=== PATIENT | male | born 1990 | race African-American/Black ===

== ENCOUNTER 2024-06-15 00:26 | Inpatient (IN) | payer OTHER, SELFPAY ==
[2024-06-15] MEDS ORDERED: fentaNYL 50 mcg/mL 1 mL Vial ONE (00:51)
[2024-06-15 01:05] LABS: #Basophils 0.06 10x3/uL (0.0-0.2); %Basophils 0.6 % (0.0-1.0); %Eosinophils 1.6 % (0.0-10.0); %Lymphocytes 32.9 % (21.0-51.0); %Monocytes 5.5 % (0.0-10.0); %Neutrophils 58.8 % (42.0-75.0); Hemoglobin 14.8 g/dL (14.0-18.0); Mean Corpuscular HGB CONC 34.4 g/dL (32.0-36.0); Mean Corpuscular Hemoglobin 30.6 pg (27.0-31.0); Mean Corpuscular Volume 88.8 fL (78.0-98.0); Mean Platelet Volume 9.6 fL (7.4-10.4); Platelet Count 280 10x3/uL (130-400); RBC Distribution Width 12.3 % (11.5-14.5); Red Blood Cell (RBC) Count 4.84 mill/uL (4.70-6.10)
[2024-06-15 01:25] LABS: ALT (SGPT) 17 U/L (8-55); AST (SGOT) 23 U/L (5-34); Albumin 4.4 g/dL (3.5-5.0); Alkaline Phosphatase 54 U/L (40-110); Anion Gap 22 mmol/L (10-20); BUN (Urea Nitrogen) 15 mg/dL (8.9-20.6); Bilirubin, Total 0.4 mg/dL (0.2-1.2); Calc. Creatinine Clearance 0 mL/min (70-130); Calcium 8.7 mg/dL (7.8-10.44); Carbon Dioxide 14 mmol/L (22-29); Chloride 105 mmol/L (98-107); Estimated GFR 84; Globulin 3.2 g/dL (2.4-3.5); Glucose 197 mg/dL (70-105); Lipase 61 U/L (8-78); Magnesium 2.1 mg/dL (1.6-2.6); Potassium 3.2 mmol/L (3.5-5.1); Protein, Total 7.6 g/dL (6.0-8.3); Sodium 138 mmol/L (136-145)
[2024-06-15] MEDS ORDERED: Morphine 4 MG/ML VIAL ONE ×2 (01:29→02:45)
[2024-06-15 02:29] LABS: Acetaminophen Less than 10 mcg/mL (Less than 10); Alcohol 188.8 mg/dL (Less than 10); Salicylate Less than 8.0 mg/dL (Less than 8.0)
[2024-06-15] MEDS ORDERED: Ondansetron PF 4 MG/2 ML Vial ONE (02:45)
[2024-06-15] MEDS ORDERED: cefTRIAXone (ROCEPHIN) 2 GM VIAL ONE (03:28)
[2024-06-15] MEDS ORDERED: Sodium Chloride 0.9% 100 ML ONE ×3 (03:28→16:16)
[2024-06-15] MEDS ORDERED: metroNIDAZOLE 500 MG (100 mL) BAG ONE (03:28)
[2024-06-15] MEDS ORDERED: HYDROmorphone 0.5 MG/0.5 ML SYRINGE ONE ×4 (03:29→09:26)
[2024-06-15] MEDS ORDERED: Ketorolac Tromethamine 30 MG (1 mL) VIAL ONE ×3 (04:24→12:03)
[2024-06-15] MEDS ORDERED: Promethazine HCl 25 MG/ML VIAL ONE (04:24)
[2024-06-15 04:29] LABS: Actual Bicarbonate (HCO3v) 19.1 mEq/L (22-28); Analyzer IN Cardio ER; Base Excess -10.6 mEq/L (-2.0 to +3.0); Calcium, Ionized (venous) 0.99 mmol/L (1.16-1.32); Chloride (VBG) 108 mmol/L (98-106); Hematocrit-VBG 48 % (42.0-52.0); Hemoglobin (Hb) 16.3 g/dL (13.2-17.3); Potassium (VBG) 3.22 mmol/L (3.70-5.30); Sodium 145 mmol/L (133-146)
[2024-06-15 04:46] LABS: Analyzer IN Cardio ER; Base Excess (BEa) -14.5 mEq/L (-2.0 to +3.0); CO2 Tension 41.3 mmHg (35.0-45.0); Calcium, Ionized (arterial) 1.09 mmol/L (1.12-1.30); Carboxyhemoglobin (COHb) 4.3 gm% (0.0-3.0); Hematocrit-ABG 48 % (42.0-52.0); Hemoglobin (Hb) 16.4 g/dL (14.0-18.0); O2 Tension (PaO2), arterial 111.5 mmHg (80.0-100.0); Potassium - ABG Lab 3.28 mmol/L (3.70-5.30)
[2024-06-15 04:54] LABS: Bacteria/HPF None Seen HPF (None Seen); Bilirubin Negative (Negative); Blood, Urine Negative (Negative); CAUTI Indications for Culture Urological Procedure; Clarity Clear (Clear); Glucose, Urine (Dipstick) Normal (Negative); Ketone, Urine Negative (Negative); Leukocyte Negative Leu/uL (Negative); Nitrite Negative (Negative); Protein, Urine (Dipstick) Negative (Neg-Trace); RBC/HPF 0-3 HPF (0-3); Specific Gravity, Urine 1.007 (1.002-1.036); Squamous Epithelial None Seen HPF (0-3); Urobilinogen Normal mg/dL (Less than 2); WBC/HPF 0-3 HPF (0-3)
[2024-06-15 04:59] LABS: pH (venous) 7.141 (7.32-7.43)
[2024-06-15 04:59] LABS: pH, Arterial 7.146 (7.35-7.45)
[2024-06-15 05:00] LABS: ALV-art Gradient 122.075 mmHg (0-20); Actual Bicarbonate (HCO3a) 13.9 mEq/L (22-28); Puncture Site Right Radial artery
[2024-06-15 05:01] LABS: Urine Culture Reflex No No; Urine Culture Reflex Yes Yes
[2024-06-15 05:03] LABS: Amphetamine Not Detected (NotDetected); Barbiturates Screen Not Detected (NotDetected); Benzodiazepine Screen Not Detected (NotDetected); Cocaine Metabolite Screen Not Detected (NotDetected); Methadone Not Detected (NotDetected); Methamphetamine Not Detected (NotDetected); Opiate Screen Detected (NotDetected); Oxycodone Screen Not Detected (NotDetected); Phencyclidine (PCP) Not Detected (NotDetected); THC/Cannabinoid Screen Not Detected (NotDetected); Tricyclic Screen Not Detected (NotDetected)
[2024-06-15] MEDS ORDERED: NS 0.9% w/ 20 MEQ KCL 1,000 ML ONE (05:20)
[2024-06-15] MEDS ORDERED: PROPOFOL 20 ML ONE (05:41)
[2024-06-15 05:43] LABS: Lactic Acid 6.39 mmol/L (0.5-2.2)
[2024-06-15] MEDS ORDERED: fentaNYL PF 100 MCG/2 ML SYRINGE ONE (05:44)
[2024-06-15] MEDS ORDERED: Dexamethasone 20 MG/5 ML VIAL ONE (05:53)
[2024-06-15] MEDS ORDERED: PHENYLEPHRINE-NS 100 MCG/ML 10 ML SYRINGE ONE (05:53)
[2024-06-15] MEDS ORDERED: Midazolam HCl 2 mg/2 ml Vial ONE (05:57)
[2024-06-15] MEDS ORDERED: Vasopressin 20 UNITS/ML VIAL ONE (06:01)
[2024-06-15] MEDS ORDERED: Rocuronium Bromide 10 MG/ML (10ML VIAL) ONE (06:31)
[2024-06-15] MEDS ORDERED: Lidocaine 1% PF 5 ML VIAL ONE (06:31)
[2024-06-15] MEDS ORDERED: Ketamine In 0.9 % NaCl 50 MG/5 ML SYRINGE ONE (06:55)
[2024-06-15] MEDS ORDERED: Ondansetron PF 4 MG/2 ML Vial IVP PRN (07:23)
[2024-06-15] MEDS ORDERED: Morphine 2 MG/ML VIAL SLOW IVP PRN (07:23)
[2024-06-15] MEDS ORDERED: SUGAMMADEX SODIUM 200 MG/2 ML VIAL ONE (07:28)
[2024-06-15] MEDS ORDERED: Ipratropium/Albuterol 3 ML NEB ONE (08:02)
[2024-06-15] MEDS ORDERED: Communication Order-Pharmacy FS SCH (09:00)
[2024-06-15] MEDS ORDERED: diphenhydrAMINE 50 MG/ML VIAL IVP PRN (09:00)
[2024-06-15] MEDS ORDERED: HYDROmorphone/PF 10 MG in Sodium Chloride 0.9% 99 ML IV PRN (09:00)
[2024-06-15] MEDS ORDERED: Naloxone HCl 0.4 mg/ml Vial IV PRN (09:00)
[2024-06-15] MEDS ORDERED: diphenhydrAMINE 50 MG/ML VIAL IM PRN (09:00)
[2024-06-15] MEDS ORDERED: diphenhydrAMINE 25 MG CAP PO PRN (09:00)
[2024-06-15] MEDS ORDERED: Promethazine HCl 25 MG/ML VIAL IM PRN (09:00)
[2024-06-15] MEDS ORDERED: Iopamidol-370 76% 500 ML MDV (1 ML CHARGE) ONE ×2 (10:28→11:07)
[2024-06-15] MEDS: Sodium Bicarbonate 150 MEQ in Dextrose 5% in Water 1,000 ML IV SCH (11:38)
[2024-06-15] MEDS: Ketorolac Tromethamine 30 MG (1 mL) VIAL IVP SCH ×3 (11:39→18:47)
[2024-06-15] MEDS ORDERED: Piperacillin/Tazobactam 3.375 GM in Sodium Chloride 0.9% 100 ML IVPB SCH (12:00)
[2024-06-15] MEDS ORDERED: Piperacillin/Tazobactam 3.375 GM VIAL ONE ×2 (12:05→16:16)
[2024-06-15] MEDS ORDERED: Famotidine/PF 20 mg/2ml Vial ONE (12:08)
[2024-06-15] MEDS: Famotidine/PF 20 mg/2ml Vial SLOW IVP SCH (12:14)
[2024-06-15] MEDS: Piperacillin/Tazobactam 3.375 GM in Sodium Chloride 0.9% 100 ML IVPB SCH ×3 (12:14→17:53)
[2024-06-15 12:54] LABS: Hematocrit 46.1 % (42.0-52.0); Hemoglobin 15.3 g/dL (14.0-18.0); Mean Corpuscular HGB CONC 33.2 g/dL (32.0-36.0); Mean Corpuscular Hemoglobin 30.1 pg (27.0-31.0); Mean Corpuscular Volume 90.7 fL (78.0-98.0); Mean Platelet Volume 10.4 fL (7.4-10.4); Platelet Count 222 10x3/uL (130-400); RBC Distribution Width 12.6 % (11.5-14.5); Red Blood Cell (RBC) Count 5.08 mill/uL (4.70-6.10)
[2024-06-15 13:10] LABS: Lactic Acid 2.74 mmol/L (0.5-2.2)
[2024-06-15 13:20] LABS: Band 53 % (5-11); Large Platelets 8.1 % (0-5); Lymphocytes 5 % (21-51); Macrocytosis SLIGHT = 6-15 cells HPF (0-5); Monocytes 14 % (0-10); Neutrophil 20 % (42-75); Platelet Adequacy Comment Platelets Normal; Polychromasia SLIGHT = 2-3 cells HPF (0-2); Reactive Lymphocytes 8 % (0-10); Reflex for Review?? YES
[2024-06-15 13:22] LABS: Anion Gap 11 mmol/L (10-20); BUN (Urea Nitrogen) 11 mg/dL (8.9-20.6); Calc. Creatinine Clearance 0 mL/min (70-130); Carbon Dioxide 18 mmol/L (22-29); Chloride 116 mmol/L (98-107); Estimated GFR 108; Glucose 121 mg/dL (70-105); Potassium 4.4 mmol/L (3.5-5.1); Sodium 141 mmol/L (136-145)
[2024-06-15] MEDS: Lactated Ringer's 1,000 ML IV SCH (18:48)
[2024-06-15 21:59] LABS: Troponin I Less than 0.010 ng/mL (< 0.028)
[2024-06-15] MEDS: Sodium Chloride 0.9% 500 ML IV SCH (23:20)
[2024-06-15 23:42] LABS: ALT (SGPT) 16 U/L (8-55); AST (SGOT) 33 U/L (5-34); Alkaline Phosphatase 33 U/L (40-110); Anion Gap 21 mmol/L (10-20); BUN (Urea Nitrogen) 13 mg/dL (8.9-20.6); Bilirubin, Total 1.4 mg/dL (0.2-1.2); Calc. Creatinine Clearance 99 mL/min (70-130); Calcium 7.1 mg/dL (7.8-10.44); Carbon Dioxide 14 mmol/L (22-29); Chloride 113 mmol/L (98-107); Estimated GFR 81; Globulin 2.7 g/dL (2.4-3.5); Glucose 103 mg/dL (70-105); Potassium 4.8 mmol/L (3.5-5.1); Protein, Total 5.7 g/dL (6.0-8.3); Sodium 143 mmol/L (136-145)
[2024-06-15 23:54] LABS: Amphetamine Not Detected (NotDetected); Barbiturates Screen Not Detected (NotDetected); Benzodiazepine Screen Not Detected (NotDetected); Cocaine Metabolite Screen Not Detected (NotDetected); Methadone Not Detected (NotDetected); Methamphetamine Not Detected (NotDetected); Opiate Screen Detected (NotDetected); Oxycodone Screen Not Detected (NotDetected); Phencyclidine (PCP) Not Detected (NotDetected); THC/Cannabinoid Screen Not Detected (NotDetected); Tricyclic Screen Not Detected (NotDetected)
[2024-06-16 00:12] LABS: Hematocrit 48.9 % (42.0-52.0); Hemoglobin 16.4 g/dL (14.0-18.0); Mean Corpuscular HGB CONC 33.5 g/dL (32.0-36.0); Mean Corpuscular Hemoglobin 30.5 pg (27.0-31.0); Mean Corpuscular Volume 91.1 fL (78.0-98.0); Platelet Count 165 10x3/uL (130-400); Red Blood Cell (RBC) Count 5.37 mill/uL (4.70-6.10)
[2024-06-16] MEDS ORDERED: Lorazepam 2 MG/ML VIAL IM PRN (00:32)
[2024-06-16] MEDS ORDERED: Electrolyte Replacement Protocol 1 EACH FS SCH (00:45)
[2024-06-16 00:57] LABS: Anisocytosis SLIGHT = 6-15 cells HPF (0-5); Band 55 % (5-11); Large Platelets 5.4 % (0-5); Lymphocytes 2 % (21-51); Macrocytosis SLIGHT = 6-15 cells HPF (0-5); Metamyelocyte 17 % (0-0); Monocytes 1 % (0-10); Myelocyte 7 % (0-0); Neutrophil 19 % (42-75); Platelet Adequacy Comment Platelets Normal; Polychromasia SLIGHT = 2-3 cells HPF (0-2); Smudge Cells 3.6 %
[2024-06-16] MEDS: Sodium Chloride 0.9% 500 ML IV SCH (01:23)
[2024-06-16] MEDS: Lorazepam 1 MG TAB PO SCH (01:44)
[2024-06-16] MEDS: Thiamine HCl 200 MG/2 ML VIAL SLOW IVP SCH (01:44)
[2024-06-16 02:38] LABS: Hematocrit 44.6 % (42.0-52.0); Hemoglobin 14.4 g/dL (14.0-18.0); Mean Corpuscular HGB CONC 32.3 g/dL (32.0-36.0); Mean Corpuscular Hemoglobin 30.3 pg (27.0-31.0); Mean Corpuscular Volume 93.9 fL (78.0-98.0); Mean Platelet Volume 10.7 fL (7.4-10.4); Platelet Count 211 10x3/uL (130-400); RBC Distribution Width 12.9 % (11.5-14.5); Red Blood Cell (RBC) Count 4.75 mill/uL (4.70-6.10)
[2024-06-16 02:46] LABS: ALT (SGPT) 16 U/L (8-55); AST (SGOT) 33 U/L (5-34); Albumin 2.7 g/dL (3.5-5.0); Alkaline Phosphatase 32 U/L (40-110); Anion Gap 16 mmol/L (10-20); BUN (Urea Nitrogen) 13 mg/dL (8.9-20.6); Bilirubin, Direct 0.5 mg/dL (0.1-0.3); Bilirubin, Total 1.1 mg/dL (0.2-1.2); Calc. Creatinine Clearance 106 mL/min (70-130); Calcium 6.7 mg/dL (7.8-10.44); Carbon Dioxide 18 mmol/L (22-29); Chloride 112 mmol/L (98-107); Estimated GFR 88; Globulin 2.5 g/dL (2.4-3.5); Glucose 101 mg/dL (70-105); Magnesium 1.4 mg/dL (1.6-2.6); Phosphorus 2.9 mg/dL (2.3-4.7); Potassium 5.2 mmol/L (3.5-5.1); Protein, Total 5.2 g/dL (6.0-8.3); Sodium 141 mmol/L (136-145)
[2024-06-16] MEDS: Sodium Chloride 0.9% 1,000 ML IV SCH ×3 (03:18→15:41)
[2024-06-16 03:19] LABS: Actual Bicarbonate (HCO3a) 20.8 mEq/L (22-28); Base Excess (BEa) -5.4 mEq/L (-2.0 to +3.0); CO2 Tension 42.8 mmHg (35.0-45.0); Calcium, Ionized (arterial) 0.99 mmol/L (1.12-1.30); Carboxyhemoglobin (COHb) 1.9 gm% (0.0-3.0); Hematocrit-ABG 44 % (42.0-52.0); Hemoglobin (Hb) 14.8 g/dL (14.0-18.0); Potassium - ABG Lab 4.45 mmol/L (3.70-5.30); pH, Arterial 7.304 (7.35-7.45)
[2024-06-16] MEDS: Magnesium 2 GM/50 ML(in water) 2 GM in Premix 1 BAG IVPB SCH ×2 (03:19→06:33)
[2024-06-16 03:20] LABS: O2 Tension (PaO2), arterial 50.5 mmHg (80.0-100.0)
[2024-06-16 03:21] LABS: Puncture Site Right Brachial art
[2024-06-16] MEDS: Lorazepam 1 MG TAB PO PRN (03:36)
[2024-06-16 04:02] LABS: Anisocytosis SLIGHT = 6-15 cells HPF (0-5); Band 49 % (5-11); Lymphocytes 8 % (21-51); Macrocytosis SLIGHT = 6-15 cells HPF (0-5); Metamyelocyte 6 % (0-0); Monocytes 1 % (0-10); Myelocyte 12 % (0-0); Neutrophil 23 % (42-75); Platelet Adequacy Comment Platelets Normal; Polychromasia SLIGHT = 2-3 cells HPF (0-2); Reactive Lymphocytes 2 % (0-10); Smudge Cells 6.7 %
[2024-06-16 04:07] LABS: Platelet Count 193 10x3/uL (130-400)
[2024-06-16 04:40] LABS: Fibrinogen 554 mg/dL (253-463)
[2024-06-16 04:42] LABS: PTT 39.2 sec (22.9-36.1); Prothrombin Time 22.7 sec (12.0-14.7)
[2024-06-16 04:49] LABS: D-Dimer Test 4.67 mcg/mL (0.27-0.43)
[2024-06-16 04:54] LABS: Lactic Acid 4.47 mmol/L (0.5-2.2)
[2024-06-16 05:06] LABS: Actual Bicarbonate (HCO3a) 24.4 mEq/L (22-28); Base Excess (BEa) -3.6 mEq/L (-2.0 to +3.0); CO2 Tension 55.8 mmHg (35.0-45.0); Carboxyhemoglobin (COHb) 1.5 gm% (0.0-3.0); Hematocrit-ABG 43 % (42.0-52.0); Hemoglobin (Hb) 14.6 g/dL (14.0-18.0); Potassium - ABG Lab 4.25 mmol/L (3.70-5.30); pH, Arterial 7.258 (7.35-7.45)
[2024-06-16] MEDS: Methocarbamol 1 GM in Sodium Chloride 0.9% 100 ML IVPB PRN (05:07)
[2024-06-16 05:09] LABS: O2 Tension (PaO2), arterial 53.2 mmHg (80.0-100.0); Puncture Site Right Brachial art
[2024-06-16 05:26] LABS: Lactic Acid 3.98 mmol/L (0.5-2.2)
[2024-06-16] MEDS: Ipratropium/Albuterol 3 ML NEB NEB SCH ×2 (06:27→22:17)
[2024-06-16] MEDS ORDERED: Morphine 2 MG/ML VIAL SLOW IVP PRN ×2 (07:45→21:15)
[2024-06-16] MEDS: Folic Acid 1 MG TAB PO SCH (08:22)
[2024-06-16] MEDS: Enoxaparin 40 MG (0.4 mL) SYRINGE SC SCH (08:22)
[2024-06-16] MEDS: Multivit, Therapeutic 1 TAB PO SCH (08:22)
[2024-06-16] MEDS: Dexmedetomidine In 0.9 % NaCl 100 ML IV SCH (10:28)
[2024-06-16] MEDS ORDERED: Iopamidol-370 76% 500 ML MDV (1 ML CHARGE) ONE (10:33)
[2024-06-16] MEDS: CALCIUM GLUC 1 GM/NS 50 ML 1 GM in Premix 1 BAG IVPB SCH (12:00)
[2024-06-16] MEDS: Lactated Ringer's 1,000 ML IV SCH ×2 (12:01→15:27)
[2024-06-16] MEDS: Albumin 25% 25 GM (100 mL) BOT IVPB SCH (12:01)
[2024-06-16] MEDS: Morphine 2 MG/ML VIAL SLOW IVP PRN (15:08)
[2024-06-16 15:20] LABS: Actual Bicarbonate (HCO3a) 22.1 mEq/L (22-28); Base Excess (BEa) -2.8 mEq/L (-2.0 to +3.0); CO2 Tension 38.6 mmHg (35.0-45.0); Calcium, Ionized (arterial) 1.09 mmol/L (1.12-1.30); Carboxyhemoglobin (COHb) 0.3 gm% (0.0-3.0); Hematocrit-ABG 35 % (42.0-52.0); Potassium - ABG Lab 3.96 mmol/L (3.70-5.30); pH, Arterial 7.375 (7.35-7.45)
[2024-06-16] MEDS ORDERED: Morphine 4 MG/ML VIAL SLOW IVP PRN (15:23)
[2024-06-16] MEDS: NOREPINEPHRINE 8 MG/250 ML-D5W 250 ML IVPB SCH (15:50)
[2024-06-16 16:34] LABS: O2 Tension (PaO2), arterial 54.4 mmHg (80.0-100.0); Puncture Site Right Radial artery
[2024-06-16] MEDS: Etomidate 40 MG (20 mL) VIAL IVP SCH (20:48)
[2024-06-16] MEDS: Propofol 1,000 MG/100 ML VIAL IV SCH (20:48)
[2024-06-16] MEDS: Rocuronium Bromide 10 MG/ML (10ML VIAL) IVP SCH ×2 (20:50→21:16)
[2024-06-16] MEDS ORDERED: Ventilator Sedation Protocol 1 EACH FS SCH (20:57)
[2024-06-16] MEDS: Fentanyl CADD 100 ML IV SCH (21:14)
[2024-06-16] MEDS: Fentanyl CADD 100 ML ONE (21:15)
[2024-06-16] MEDS: Escitalopram Oxalate 20 mg Tablet PO SCH (21:15)
[2024-06-16] MEDS ORDERED: Fentanyl BOLUS 250 ML IVPB PRN (21:15)
[2024-06-16] MEDS ORDERED: Propofol BOLUS 1,000 MG/100 ML VIAL IV PRN (21:15)
[2024-06-16] MEDS ORDERED: DISCONTINUE PREVIOUS NARCOTIC PAIN MEDICATIONS AND BENZODIAZEPINES FS SCH (21:15)
[2024-06-16] MEDS: methylPREDNISolone Sod Succ 40 MG VIAL IVP SCH (21:30)
[2024-06-16 21:32] LABS: Actual Bicarbonate (HCO3a) 21.9 mEq/L (22-28); Base Excess (BEa) -2.3 mEq/L (-2.0 to +3.0); CO2 Tension 35.5 mmHg (35.0-45.0); Calcium, Ionized (arterial) 1.09 mmol/L (1.12-1.30); Carboxyhemoglobin (COHb) 0.4 gm% (0.0-3.0); Hematocrit-ABG 35 % (42.0-52.0); Hemoglobin (Hb) 11.8 g/dL (14.0-18.0); O2 Tension (PaO2), arterial 67.1 mmHg (80.0-100.0); Potassium - ABG Lab 3.78 mmol/L (3.70-5.30); pH, Arterial 7.408 (7.35-7.45)
[2024-06-16] MEDS: methylPREDNISolone Sod Succ/PF 40 MG in Sodium Chloride 0.9% 250 ML 250 ML IVPB SCH (21:41)
[2024-06-16 21:47] LABS: ALV-art Gradient 601.525 mmHg (0-20); Puncture Site Left Radial artery
[2024-06-16] MEDS: Lorazepam 2 MG/ML VIAL SLOW IVP PRN (22:41)
[2024-06-17] MEDS ORDERED: Lorazepam 1 MG TAB PO PRN (00:32)
[2024-06-17 07:24] LABS: Actual Bicarbonate (HCO3a) 22.8 mEq/L (22-28); Base Excess (BEa) -1.6 mEq/L (-2.0 to +3.0); CO2 Tension 37.5 mmHg (35.0-45.0); Calcium, Ionized (arterial) 1.07 mmol/L (1.12-1.30); Carboxyhemoglobin (COHb) 0.5 gm% (0.0-3.0); Hematocrit-ABG 33 % (42.0-52.0); Hemoglobin (Hb) 11.3 g/dL (14.0-18.0); O2 Tension (PaO2), arterial 79.1 mmHg (80.0-100.0); Potassium - ABG Lab 4.59 mmol/L (3.70-5.30); pH, Arterial 7.402 (7.35-7.45)
[2024-06-17 07:31] LABS: ALV-art Gradient 587.025 mmHg (0-20); Puncture Site Left Radial artery
[2024-06-17 07:40] LABS: Hematocrit 31.8 % (42.0-52.0); Hemoglobin 10.7 g/dL (14.0-18.0); Mean Corpuscular HGB CONC 33.6 g/dL (32.0-36.0); Mean Corpuscular Hemoglobin 29.9 pg (27.0-31.0); Mean Corpuscular Volume 88.8 fL (78.0-98.0); Mean Platelet Volume 11.1 fL (7.4-10.4); Platelet Count 176 10x3/uL (130-400); RBC Distribution Width 13.2 % (11.5-14.5); Red Blood Cell (RBC) Count 3.58 mill/uL (4.70-6.10)
[2024-06-17 07:43] LABS: Anion Gap 13 mmol/L (10-20); BUN (Urea Nitrogen) 14 mg/dL (8.9-20.6); Calc. Creatinine Clearance 107 mL/min (70-130); Carbon Dioxide 22 mmol/L (22-29); Chloride 112 mmol/L (98-107); Estimated GFR 81; Glucose 168 mg/dL (70-105); Magnesium 2.6 mg/dL (1.6-2.6); Potassium 4.6 mmol/L (3.5-5.1); Sodium 142 mmol/L (136-145)
[2024-06-17 08:15] LABS: Band 37 % (5-11); Large Platelets 3.7 % (0-5); Metamyelocyte 2 % (0-0); Monocytes 5 % (0-10); Neutrophil 57 % (42-75); Platelet Adequacy Comment Platelets Normal; RBC Morphology Within Normal Limits
[2024-06-17] MEDS: Lactated Ringer's 1,000 ML IV SCH (08:30)
[2024-06-17] MEDS: methylPREDNISolone Sod Succ 40 MG VIAL IVP SCH (08:34)
[2024-06-17] MEDS: Vecuronium 10 MG VIAL IVP PRN (09:58)
[2024-06-18] MEDS ORDERED: Lorazepam 1 MG TAB PO PRN (00:32)
[2024-06-18] MEDS ORDERED: Lorazepam 0.5 MG TAB PO SCH (00:45)
[2024-06-18 07:39] LABS: Actual Bicarbonate (HCO3a) 21.9 mEq/L (22-28); Base Excess (BEa) -1.9 mEq/L (-2.0 to +3.0); CO2 Tension 34.2 mmHg (35.0-45.0); Calcium, Ionized (arterial) 1.19 mmol/L (1.12-1.30); Carboxyhemoglobin (COHb) 0.7 gm% (0.0-3.0); Hematocrit-ABG 32 % (42.0-52.0); Hemoglobin (Hb) 10.9 g/dL (14.0-18.0); O2 Tension (PaO2), arterial 116.9 mmHg (80.0-100.0); pH, Arterial 7.425 (7.35-7.45)
[2024-06-18 07:41] LABS: Puncture Site Right Radial artery
[2024-06-18 07:42] LABS: Peep/CPAP 12.5 cmH2O
[2024-06-18 07:53] LABS: Hematocrit 31.6 % (42.0-52.0); Hemoglobin 10.6 g/dL (14.0-18.0); Mean Corpuscular HGB CONC 33.5 g/dL (32.0-36.0); Mean Corpuscular Hemoglobin 29.9 pg (27.0-31.0); Mean Corpuscular Volume 89.3 fL (78.0-98.0); Mean Platelet Volume 11.8 fL (7.4-10.4); Platelet Count 155 10x3/uL (130-400); Red Blood Cell (RBC) Count 3.54 mill/uL (4.70-6.10)
[2024-06-18 07:55] LABS: Anion Gap 15 mmol/L (10-20); BUN (Urea Nitrogen) 27 mg/dL (8.9-20.6); Calc. Creatinine Clearance 83 mL/min (70-130); Calcium 8.5 mg/dL (7.8-10.44); Carbon Dioxide 19 mmol/L (22-29); Chloride 114 mmol/L (98-107); Estimated GFR 61; Glucose 142 mg/dL (70-105); Potassium 4.6 mmol/L (3.5-5.1); Sodium 143 mmol/L (136-145)
[2024-06-18 08:10] LABS: #Eosinophils Less than 0.03 10x3/uL (0.0-0.7); %Basophils 0.6 % (0.0-1.0); %Lymphocytes 3.5 % (21.0-51.0); %Neutrophils 89.4 % (42.0-75.0); Band 17 % (5-11); Lymphocytes 2 % (21-51); Monocytes 1 % (0-10); Neutrophil 76 % (42-75); Nucleated RBC (Manual Ct) 1 % (0); Plasma Cells 0 % (0-0); Platelet Adequacy Comment Appears Adequate; Polychromasia SLIGHT = 2-3 cells (100X) (0-2/hpf); Reactive Lymphocytes 4 % (0-10); Total Cell Count 100
[2024-06-18] MEDS: methylPREDNISolone Sod Succ 40 MG VIAL IVP SCH (08:53)
[2024-06-18] MEDS: Linezolid 600 MG in Premix 1 BAG IVPB SCH ×2 (11:17→19:45)
[2024-06-18] MEDS: hydrALAZINE 20 MG/ML VIAL SLOW IVP PRN (14:56)
[2024-06-18] MEDS: Propofol 1,000 MG/100 ML VIAL IV PRN (19:45)
[2024-06-19] MEDS ORDERED: Lorazepam 0.5 MG TAB PO PRN (00:32)
[2024-06-19 06:57] LABS: Base Excess (BEa) 0.3 mEq/L (-2.0 to +3.0); CO2 Tension 27.3 mmHg (35.0-45.0); Calcium, Ionized (arterial) 1.16 mmol/L (1.12-1.30); Carboxyhemoglobin (COHb) 0.3 gm% (0.0-3.0); Hematocrit-ABG 36 % (42.0-52.0); Hemoglobin (Hb) 12.2 g/dL (14.0-18.0); O2 Tension (PaO2), arterial 128.3 mmHg (80.0-100.0); pH, Arterial 7.525 (7.35-7.45)
[2024-06-19 07:18] LABS: ALV-art Gradient 336.675 mmHg (0-20); Peep/CPAP 12.5 cmH2O; Puncture Site Right Radial artery
[2024-06-19 07:57] LABS: Anion Gap 13 mmol/L (10-20); Calc. Creatinine Clearance 86 mL/min (70-130); Calcium 8.5 mg/dL (7.8-10.44); Carbon Dioxide 21 mmol/L (22-29); Chloride 115 mmol/L (98-107); Estimated GFR 62; Glucose 143 mg/dL (70-105); Potassium 3.7 mmol/L (3.5-5.1); Sodium 145 mmol/L (136-145)
[2024-06-19 08:05] LABS: Hematocrit 31.5 % (42.0-52.0); Hemoglobin 10.5 g/dL (14.0-18.0); Mean Corpuscular HGB CONC 33.3 g/dL (32.0-36.0); Mean Corpuscular Hemoglobin 29.7 pg (27.0-31.0); Platelet Count 218 10x3/uL (130-400); RBC Distribution Width 13.9 % (11.5-14.5); Red Blood Cell (RBC) Count 3.54 mill/uL (4.70-6.10)
[2024-06-19 08:40] LABS: BUN (Urea Nitrogen) 36 mg/dL (8.9-20.6)
[2024-06-19] MEDS ORDERED: Thiamine 100 MG TAB PO SCH (09:00)
[2024-06-19 09:33] LABS: Band 15 % (5-11); Large Platelets 2.9 % (0-5); Lymphocytes 6 % (21-51); Macrocytosis SLIGHT = 6-15 cells HPF (0-5); Metamyelocyte 3 % (0-0); Monocytes 8 % (0-10); Myelocyte 1 % (0-0); Neutrophil 68 % (42-75); Nucleated RBC (Manual Ct) 5 % (0); Platelet Adequacy Comment Platelets Normal; Polychromasia MODERATE = 3-4 cells HPF (0-2); RBC Morphology Within Normal Limits
[2024-06-19] MEDS: hydrALAZINE 20 MG/ML VIAL SLOW IVP PRN (15:01)
[2024-06-20 04:29] LABS: Hematocrit 33.3 % (42.0-52.0); Hemoglobin 11.4 g/dL (14.0-18.0); Mean Corpuscular HGB CONC 34.2 g/dL (32.0-36.0); Mean Corpuscular Hemoglobin 29.8 pg (27.0-31.0); Mean Corpuscular Volume 86.9 fL (78.0-98.0); Mean Platelet Volume 10.7 fL (7.4-10.4); Platelet Count 235 10x3/uL (130-400); RBC Distribution Width 14.2 % (11.5-14.5); Red Blood Cell (RBC) Count 3.83 mill/uL (4.70-6.10)
[2024-06-20 04:42] LABS: Anion Gap 14 mmol/L (10-20); BUN (Urea Nitrogen) 30 mg/dL (8.9-20.6); Calc. Creatinine Clearance 110 mL/min (70-130); Calcium 8.6 mg/dL (7.8-10.44); Carbon Dioxide 22 mmol/L (22-29); Chloride 113 mmol/L (98-107); Estimated GFR 83; Glucose 147 mg/dL (70-105); Potassium 3.5 mmol/L (3.5-5.1); Sodium 145 mmol/L (136-145)
[2024-06-20 06:07] LABS: Anisocytosis SLIGHT = 6-15 cells HPF (0-5); Band 10 % (5-11); Burr Cells SLIGHT = 2-5 cells HPF (0-1); Large Platelets 4.8 % (0-5); Lymphocytes 7 % (21-51); Macrocytosis SLIGHT = 6-15 cells HPF (0-5); Metamyelocyte 7 % (0-0); Monocytes 12 % (0-10); Myelocyte 7 % (0-0); Neutrophil 54 % (42-75); Nucleated RBC (Manual Ct) 4 % (0); Ovalocytes SLIGHT = 2-5 cells HPF (0-1); Platelet Adequacy Comment Platelets Normal; Polychromasia SLIGHT = 2-3 cells HPF (0-2); Promyelocytes 2 % (0-0); Reactive Lymphocytes 2 % (0-10); Target Cells SLIGHT = 2-5 cells HPF (0-1); Vacuoles SLIGHT
[2024-06-20 07:24] LABS: Actual Bicarbonate (HCO3a) 20.6 mEq/L (22-28); Base Excess (BEa) -1.5 mEq/L (-2.0 to +3.0); CO2 Tension 26.9 mmHg (35.0-45.0); Calcium, Ionized (arterial) 1.17 mmol/L (1.12-1.30); Carboxyhemoglobin (COHb) 0.3 gm% (0.0-3.0); Hematocrit-ABG 34 % (42.0-52.0); Hemoglobin (Hb) 11.7 g/dL (14.0-18.0); O2 Tension (PaO2), arterial 118.9 mmHg (80.0-100.0); Potassium - ABG Lab 3.44 mmol/L (3.70-5.30); pH, Arterial 7.501 (7.35-7.45)
[2024-06-20 07:42] LABS: Puncture Site Left Radial artery
[2024-06-20 07:43] LABS: ALV-art Gradient 132.675 mmHg (0-20)
[2024-06-20] MEDS: Potassium Bicarbonate/Cit Ac 20 MEQ TAB PO SCH (08:47)
[2024-06-20] MEDS: Albumin 25% 100 ML ONE (12:31)
[2024-06-20] MEDS: Ipratropium/Albuterol 3 ML NEB NEB SCH (12:51)
[2024-06-20] MEDS ORDERED: Dextrose 5% in Water 1,000 ML IV SCH (23:45)
[2024-06-21 06:09] LABS: Hematocrit 33.5 % (42.0-52.0); Hemoglobin 11.2 g/dL (14.0-18.0); Mean Corpuscular HGB CONC 33.4 g/dL (32.0-36.0); Mean Corpuscular Hemoglobin 30.2 pg (27.0-31.0); Mean Corpuscular Volume 90.3 fL (78.0-98.0); Mean Platelet Volume 10.7 fL (7.4-10.4); Platelet Count 228 10x3/uL (130-400); RBC Distribution Width 14.4 % (11.5-14.5); Red Blood Cell (RBC) Count 3.71 mill/uL (4.70-6.10)
[2024-06-21 06:12] LABS: Anion Gap 11 mmol/L (10-20); BUN (Urea Nitrogen) 24 mg/dL (8.9-20.6); Calc. Creatinine Clearance 142 mL/min (70-130); Calcium 8.6 mg/dL (7.8-10.44); Carbon Dioxide 22 mmol/L (22-29); Chloride 113 mmol/L (98-107); Estimated GFR 115; Glucose 129 mg/dL (70-105); Potassium 3.8 mmol/L (3.5-5.1); Sodium 142 mmol/L (136-145)
[2024-06-21 06:34] LABS: Magnesium 2.5 mg/dL (1.6-2.6); Phosphorus 3.1 mg/dL (2.3-4.7)
[2024-06-21 08:03] LABS: Band 14 % (5-11); Lymphocytes 16 % (21-51); Monocytes 12 % (0-10); Neutrophil 56 % (42-75); Nucleated RBC (Manual Ct) 1 % (0); Platelet Adequacy Comment Platelets Normal; RBC Morphology Within Normal Limits; Reactive Lymphocytes 1 % (0-10)
[2024-06-21] MEDS: DC Sedation Protocol FS ONE ×2 (11:18)
[2024-06-21] MEDS: Morphine 4 MG/ML VIAL ONE (11:36)
[2024-06-21] MEDS: Morphine 4 MG/ML VIAL SLOW IVP SCH (11:41)
[2024-06-21] MEDS: traMADol HCl 50 MG TAB PO PRN ×2 (15:14→20:22)
[2024-06-21] MEDS: Ketorolac Tromethamine 30 MG (1 mL) VIAL IVP SCH ×2 (16:17→23:44)
[2024-06-21] MEDS: Acetaminophen 500 MG TAB PO SCH (16:17)
[2024-06-21] MEDS: Senokot S 8.6-50 MG TAB PO SCH (20:23)
[2024-06-21] MEDS: Famotidine 20 MG TAB PO SCH (20:23)
[2024-06-21] MEDS: Ondansetron PF 4 MG/2 ML Vial IVP PRN (22:07)
[2024-06-21] MEDS: fentaNYL 50 mcg/mL 1 mL Vial SLOW IVP SCH (22:18)
[2024-06-22] MEDS: diphenhydrAMINE 50 MG/ML VIAL IVP SCH (01:10)
[2024-06-22] MEDS: Morphine 2 MG/ML VIAL SLOW IVP SCH (01:10)
[2024-06-22 07:23] LABS: Anion Gap 16 mmol/L (10-20); BUN (Urea Nitrogen) 24 mg/dL (8.9-20.6); Calc. Creatinine Clearance 103 mL/min (70-130); Calcium 9.1 mg/dL (7.8-10.44); Carbon Dioxide 25 mmol/L (22-29); Chloride 109 mmol/L (98-107); Estimated GFR 81; Glucose 80 mg/dL (70-105); Hematocrit 40.4 % (42.0-52.0); Mean Corpuscular HGB CONC 32.2 g/dL (32.0-36.0); Mean Corpuscular Hemoglobin 29.7 pg (27.0-31.0); Mean Corpuscular Volume 92.4 fL (78.0-98.0); Mean Platelet Volume 10.8 fL (7.4-10.4); Platelet Count 295 10x3/uL (130-400); Potassium 3.6 mmol/L (3.5-5.1); RBC Distribution Width 14.5 % (11.5-14.5); Red Blood Cell (RBC) Count 4.37 mill/uL (4.70-6.10); Sodium 146 mmol/L (136-145)
[2024-06-22 07:44] LABS: Band 16 % (5-11); Lymphocytes 4 % (21-51); Metamyelocyte 3 % (0-0); Neutrophil 77 % (42-75); Nucleated RBC (Manual Ct) 4 % (0); Platelet Adequacy Comment Platelets Normal; Polychromasia MODERATE = 3-4 cells HPF (0-2); Stomatocytes SLIGHT = 2-5 cells HPF (0-1); Target Cells SLIGHT = 2-5 cells HPF (0-1)
[2024-06-22] MEDS: Polyethylene Glycol 3350 17 GM Packet PO SCH (07:51)
[2024-06-22] MEDS ORDERED: methylPREDNISolone Sod Succ 40 MG VIAL IVP SCH (09:00)
[2024-06-22] MEDS ORDERED: GASTROGRAFIN 30 ML BOT ONE (09:23)
[2024-06-22] MEDS ORDERED: Iopamidol 370 76% 100 ML VIAL ONE (09:23)
[2024-06-22] MEDS: Morphine 2 MG/ML VIAL SLOW IVP PRN (09:44)
[2024-06-23 06:16] LABS: Anion Gap 14 mmol/L (10-20); BUN (Urea Nitrogen) 19 mg/dL (8.9-20.6); Calc. Creatinine Clearance 117 mL/min (70-130); Calcium 8.2 mg/dL (7.8-10.44); Carbon Dioxide 24 mmol/L (22-29); Chloride 111 mmol/L (98-107); Estimated GFR 94; Glucose 72 mg/dL (70-105); Potassium 3.2 mmol/L (3.5-5.1); Sodium 146 mmol/L (136-145)
[2024-06-23] MEDS: Ondansetron ODT 4 MG TAB PO PRN (09:13)
[2024-06-23 10:54] LABS: Hematocrit 30.1 % (42.0-52.0); Hemoglobin 10.1 g/dL (14.0-18.0); Mean Corpuscular HGB CONC 33.6 g/dL (32.0-36.0); Mean Corpuscular Hemoglobin 30.1 pg (27.0-31.0); Mean Corpuscular Volume 89.9 fL (78.0-98.0); Mean Platelet Volume 10.2 fL (7.4-10.4); Platelet Count 228 10x3/uL (130-400); RBC Distribution Width 14.1 % (11.5-14.5); Red Blood Cell (RBC) Count 3.35 mill/uL (4.70-6.10)
[2024-06-23] MEDS: Potassium Chloride 20 MEQ TAB PO SCH (11:17)
[2024-06-23 11:46] LABS: Band 8 % (5-11); Metamyelocyte 1 % (0-0); Monocytes 2 % (0-10); Myelocyte 1 % (0-0); Neutrophil 88 % (42-75); Platelet Adequacy Comment Platelets Normal; Polychromasia SLIGHT = 2-3 cells HPF (0-2); Smudge Cells 2.9 %; Toxic Granulation SLIGHT
[2024-06-23] MEDS: Potassium Chloride 20 MEQ in Lactated Ringer's 1,000 ML IV SCH (12:52)
[2024-06-23] MEDS ORDERED: Iopamidol-370 76% 500 ML MDV (1 ML CHARGE) ONE (13:41)
[2024-06-23 13:49] LABS: HIV (1/2) Antibody/Antigen NONREACTIVE (NonReactive); HIV 1/2 INDEX 0.11 S/CO (<1.00)
[2024-06-23] MEDS ORDERED: Potassium Chloride 20 MEQ TAB PO SCH (14:00)
[2024-06-23] MEDS: Morphine 4 MG/ML VIAL SLOW IVP PRN (14:42)
[2024-06-23] MEDS: Micafungin 100 MG in Sodium Chloride 0.9% 100 ML IVPB SCH (14:45)
[2024-06-24 05:14] LABS: Anion Gap 16 mmol/L (10-20); BUN (Urea Nitrogen) 16 mg/dL (8.9-20.6); Calc. Creatinine Clearance 140 mL/min (70-130); Carbon Dioxide 21 mmol/L (22-29); Chloride 112 mmol/L (98-107); Estimated GFR 115; Glucose 88 mg/dL (70-105); Potassium 3.6 mmol/L (3.5-5.1); Sodium 145 mmol/L (136-145)
[2024-06-24 05:21] LABS: Hematocrit 27.5 % (42.0-52.0); Hemoglobin 9.2 g/dL (14.0-18.0); Mean Corpuscular HGB CONC 33.5 g/dL (32.0-36.0); Mean Corpuscular Volume 89.6 fL (78.0-98.0); Mean Platelet Volume 10.4 fL (7.4-10.4); Platelet Count 211 10x3/uL (130-400); RBC Distribution Width 13.6 % (11.5-14.5); Red Blood Cell (RBC) Count 3.07 mill/uL (4.70-6.10)
[2024-06-24 06:16] LABS: Band 2 % (5-11); Eosinophils 1 % (0-10); Lymphocytes 4 % (21-51); Monocytes 2 % (0-10); Neutrophil 91 % (42-75); Platelet Adequacy Comment Platelets Normal; Polychromasia SLIGHT = 2-3 cells HPF (0-2); RBC Morphology Within Normal Limits
[2024-06-24] MEDS: DAPTOmycin 1,000 MG in Sodium Chloride 0.9% 50 ML IVPB SCH (23:32)
[2024-06-25 04:22] LABS: #Basophils Less than 0.03 10x3/uL (0.0-0.2); %Basophils 0.1 % (0.0-1.0); %Eosinophils 1.7 % (0.0-10.0); %Lymphocytes 4.9 % (21.0-51.0); %Monocytes 7.7 % (0.0-10.0); %Neutrophils 82.3 % (42.0-75.0); Hematocrit 24.8 % (42.0-52.0); Hemoglobin 8.2 g/dL (14.0-18.0); Mean Corpuscular HGB CONC 33.1 g/dL (32.0-36.0); Mean Corpuscular Hemoglobin 29.3 pg (27.0-31.0); Mean Corpuscular Volume 88.6 fL (78.0-98.0); Mean Platelet Volume 10.5 fL (7.4-10.4); Platelet Count 217 10x3/uL (130-400); RBC Distribution Width 13.4 % (11.5-14.5)
[2024-06-25 04:40] LABS: Anion Gap 15 mmol/L (10-20); BUN (Urea Nitrogen) 15 mg/dL (8.9-20.6); Calc. Creatinine Clearance 142 mL/min (70-130); Carbon Dioxide 19 mmol/L (22-29); Chloride 113 mmol/L (98-107); Estimated GFR 116; Glucose 86 mg/dL (70-105); Potassium 3.8 mmol/L (3.5-5.1); Sodium 143 mmol/L (136-145)
[2024-06-26 04:56] LABS: #Basophils 0.03 10x3/uL (0.0-0.2); %Basophils 0.1 % (0.0-1.0); %Eosinophils 1.4 % (0.0-10.0); %Lymphocytes 3.8 % (21.0-51.0); %Monocytes 9.9 % (0.0-10.0); %Neutrophils 83.2 % (42.0-75.0); Hematocrit 25.2 % (42.0-52.0); Hemoglobin 8.6 g/dL (14.0-18.0); Mean Corpuscular HGB CONC 34.1 g/dL (32.0-36.0); Mean Corpuscular Hemoglobin 29.7 pg (27.0-31.0); Mean Corpuscular Volume 86.9 fL (78.0-98.0); Mean Platelet Volume 9.8 fL (7.4-10.4); Platelet Count 253 10x3/uL (130-400); RBC Distribution Width 12.8 % (11.5-14.5)
[2024-06-26 05:24] LABS: Anion Gap 12 mmol/L (10-20); BUN (Urea Nitrogen) 9 mg/dL (8.9-20.6); Calc. Creatinine Clearance 154 mL/min (70-130); Carbon Dioxide 21 mmol/L (22-29); Chloride 107 mmol/L (98-107); Estimated GFR 119; Glucose 93 mg/dL (70-105); Magnesium 2.1 mg/dL (1.6-2.6); Potassium 3.9 mmol/L (3.5-5.1); Sodium 136 mmol/L (136-145)
[2024-06-26 12:21] LABS: Influenza A by NAA Not Detected (NotDetected); Influenza B by NAA Not Detected (NotDetected); RSV by NAA Not Detected (NotDetected); SARS-CoV-2 NAA Rapid Test Not Detected (NotDetected)
[2024-06-27 05:09] LABS: #Basophils 0.04 10x3/uL (0.0-0.2); %Basophils 0.2 % (0.0-1.0); %Eosinophils 1.6 % (0.0-10.0); %Lymphocytes 5.1 % (21.0-51.0); %Monocytes 11.8 % (0.0-10.0); %Neutrophils 78.1 % (42.0-75.0); Hematocrit 24.5 % (42.0-52.0); Hemoglobin 8.4 g/dL (14.0-18.0); Mean Corpuscular HGB CONC 34.3 g/dL (32.0-36.0); Mean Corpuscular Volume 87.5 fL (78.0-98.0); Mean Platelet Volume 10.1 fL (7.4-10.4); Platelet Count 282 10x3/uL (130-400); RBC Distribution Width 12.8 % (11.5-14.5)
[2024-06-27 05:24] LABS: Anion Gap 15 mmol/L (10-20); BUN (Urea Nitrogen) 8 mg/dL (8.9-20.6); Calc. Creatinine Clearance 159 mL/min (70-130); Calcium 8.1 mg/dL (7.8-10.44); Carbon Dioxide 18 mmol/L (22-29); Chloride 107 mmol/L (98-107); Estimated GFR 120; Glucose 97 mg/dL (70-105); Potassium 3.9 mmol/L (3.5-5.1); Sodium 136 mmol/L (136-145)
[2024-06-27] MEDS: Amino Acids 4.25 %/Dextrose 5% 1,000 ML IV SCH (17:48)
[2024-06-27] MEDS: Ipratropium/Albuterol 3 ML NEB NEB PRN (20:19)
[2024-06-28 05:29] LABS: Anion Gap 16 mmol/L (10-20); BUN (Urea Nitrogen) 7 mg/dL (8.9-20.6); Calc. Creatinine Clearance 148 mL/min (70-130); Calcium 8.6 mg/dL (7.8-10.44); Carbon Dioxide 20 mmol/L (22-29); Chloride 102 mmol/L (98-107); Estimated GFR 118; Glucose 119 mg/dL (70-105); Potassium 3.5 mmol/L (3.5-5.1); Sodium 134 mmol/L (136-145)
[2024-06-28 05:37] LABS: Hematocrit 26.4 % (42.0-52.0); Mean Corpuscular HGB CONC 34.1 g/dL (32.0-36.0); Mean Corpuscular Hemoglobin 29.4 pg (27.0-31.0); Mean Corpuscular Volume 86.3 fL (78.0-98.0); Mean Platelet Volume 10.6 fL (7.4-10.4); Platelet Count 407 10x3/uL (130-400); RBC Distribution Width 13.2 % (11.5-14.5); Red Blood Cell (RBC) Count 3.06 mill/uL (4.70-6.10)
[2024-06-28 06:22] LABS: Lymphocytes 8 % (21-51); Metamyelocyte 1 % (0-0); Monocytes 14 % (0-10); Myelocyte 1 % (0-0); Neutrophil 76 % (42-75); Platelet Adequacy Comment Platelets Normal; Polychromasia SLIGHT = 2-3 cells HPF (0-2)
[2024-06-28] MEDS: Multivit, Therapeutic 1 TAB PO SCH (09:18)
[2024-06-28] MEDS: Amino Acids 4.25 %/Dextrose 5% 1,000 ML IV SCH (10:36)
[2024-06-28] MEDS: Cyclobenzaprine 10 MG TAB PO PRN (13:33)
[2024-06-28] MEDS: Amino Acids 4.25 %/Dextrose 5% 2,000 ML IV SCH (16:38)
[2024-06-29 05:30] LABS: Anion Gap 12 mmol/L (10-20); BUN (Urea Nitrogen) 9 mg/dL (8.9-20.6); Calc. Creatinine Clearance 165 mL/min (70-130); Calcium 8.4 mg/dL (7.8-10.44); Carbon Dioxide 21 mmol/L (22-29); Chloride 104 mmol/L (98-107); Estimated GFR 122; Glucose 126 mg/dL (70-105); Potassium 3.4 mmol/L (3.5-5.1); Sodium 134 mmol/L (136-145)
[2024-06-29] MEDS ORDERED: Electrolyte Replacement Protocol FS PRN (07:45)
[2024-06-29 08:28] LABS: Hematocrit 25.3 % (42.0-52.0); Hemoglobin 8.6 g/dL (14.0-18.0); Mean Corpuscular Hemoglobin 29.2 pg (27.0-31.0); Mean Corpuscular Volume 85.8 fL (78.0-98.0); Mean Platelet Volume 10.4 fL (7.4-10.4); Platelet Count 425 10x3/uL (130-400); RBC Distribution Width 12.9 % (11.5-14.5); Red Blood Cell (RBC) Count 2.95 mill/uL (4.70-6.10)
[2024-06-29 08:30] LABS: Band 6 % (5-11); Eosinophils 1 % (0-10); Lymphocytes 5 % (21-51); Monocytes 17 % (0-10); Neutrophil 70 % (42-75); Platelet Adequacy Comment Platelets Normal; Polychromasia SLIGHT = 2-3 cells HPF (0-2)
[2024-06-29] MEDS: Potassium Chloride 20 MEQ in Premix 1 BAG IVPB SCH (09:14)
[2024-06-29] MEDS: Magnesium 2 GM/50 ML(in water) 2 GM in Premix 1 BAG IVPB SCH (09:35)
[2024-06-30 05:48] LABS: Hematocrit 29.6 % (42.0-52.0); Hemoglobin 9.9 g/dL (14.0-18.0); Mean Corpuscular HGB CONC 33.4 g/dL (32.0-36.0); Mean Corpuscular Hemoglobin 29.4 pg (27.0-31.0); Mean Corpuscular Volume 87.8 fL (78.0-98.0); Platelet Count 515 10x3/uL (130-400); RBC Distribution Width 13.2 % (11.5-14.5); Red Blood Cell (RBC) Count 3.37 mill/uL (4.70-6.10)
[2024-06-30 06:20] LABS: Band 4 % (5-11); Eosinophils 1 % (0-10); Lymphocytes 6 % (21-51); Monocytes 6 % (0-10); Myelocyte 1 % (0-0); Neutrophil 82 % (42-75); Nucleated RBC (Manual Ct) 1 % (0); Platelet Adequacy Comment Platelets Increased; Polychromasia SLIGHT = 2-3 cells HPF (0-2)
[2024-06-30 06:21] LABS: Anion Gap 16 mmol/L (10-20); BUN (Urea Nitrogen) 10 mg/dL (8.9-20.6); Calc. Creatinine Clearance 163 mL/min (70-130); Calcium 8.7 mg/dL (7.8-10.44); Carbon Dioxide 18 mmol/L (22-29); Chloride 102 mmol/L (98-107); Estimated GFR 121; Glucose 118 mg/dL (70-105); Magnesium 2.3 mg/dL (1.6-2.6); Potassium 3.8 mmol/L (3.5-5.1); Sodium 132 mmol/L (136-145)
[2024-06-30] MEDS: Acetaminophen 325 MG TAB PO SCH (09:50)
[2024-06-30] MEDS: traMADol HCl 50 MG TAB PO SCH (09:52)
[2024-06-30] MEDS: traMADol HCl 50 MG TAB PO PRN (12:53)
[2024-07-01 04:07] LABS: #Basophils 0.05 10x3/uL (0.0-0.2); %Basophils 0.4 % (0.0-1.0); %Lymphocytes 8.1 % (21.0-51.0); %Monocytes 10.5 % (0.0-10.0); %Neutrophils 75.1 % (42.0-75.0); Hematocrit 27.5 % (42.0-52.0); Hemoglobin 9.3 g/dL (14.0-18.0); Mean Corpuscular HGB CONC 33.8 g/dL (32.0-36.0); Mean Corpuscular Hemoglobin 29.2 pg (27.0-31.0); Mean Corpuscular Volume 86.5 fL (78.0-98.0); Mean Platelet Volume 9.9 fL (7.4-10.4); Platelet Count 524 10x3/uL (130-400); RBC Distribution Width 13.2 % (11.5-14.5); Red Blood Cell (RBC) Count 3.18 mill/uL (4.70-6.10)
[2024-07-01 04:25] LABS: Anion Gap 16 mmol/L (10-20); BUN (Urea Nitrogen) 9 mg/dL (8.9-20.6); Calc. Creatinine Clearance 145 mL/min (70-130); Calcium 8.7 mg/dL (7.8-10.44); Carbon Dioxide 21 mmol/L (22-29); Chloride 103 mmol/L (98-107); Estimated GFR 123; Glucose 87 mg/dL (70-105); Magnesium 2.1 mg/dL (1.6-2.6); Potassium 3.5 mmol/L (3.5-5.1); Sodium 136 mmol/L (136-145)
[2024-07-01] MEDS: Potassium Chloride 20 MEQ TAB PO SCH (08:55)
[2024-07-01 09:43] LABS: INR-International Normal Ratio 1.5; PTT 42.7 sec (22.9-36.1); Prothrombin Time 17.8 sec (12.0-14.7)
[2024-07-01] MEDS ORDERED: Lidocaine 1% PF 5 ML VIAL ONE (12:32)
[2024-07-01] MEDS ORDERED: Sodium Bicarbonate 2.5 MEQ/5 ML SDV ONE (12:32)
[2024-07-01] MEDS ORDERED: Midazolam HCl 2 mg/2 ml Vial ONE (12:39)
[2024-07-01] MEDS ORDERED: fentaNYL 50 mcg/mL 1 mL Vial ONE (12:43)
[2024-07-02 04:35] LABS: #Basophils 0.07 10x3/uL (0.0-0.2); %Basophils 0.5 % (0.0-1.0); %Eosinophils 2.2 % (0.0-10.0); %Lymphocytes 7.5 % (21.0-51.0); %Monocytes 9.2 % (0.0-10.0); %Neutrophils 77.9 % (42.0-75.0); Hematocrit 27.2 % (42.0-52.0); Hemoglobin 9.2 g/dL (14.0-18.0); Mean Corpuscular HGB CONC 33.8 g/dL (32.0-36.0); Mean Corpuscular Volume 85.8 fL (78.0-98.0); Mean Platelet Volume 9.9 fL (7.4-10.4); Platelet Count 535 10x3/uL (130-400); RBC Distribution Width 13.2 % (11.5-14.5); Red Blood Cell (RBC) Count 3.17 mill/uL (4.70-6.10)
[2024-07-02 05:04] LABS: Anion Gap 17 mmol/L (10-20); BUN (Urea Nitrogen) 9 mg/dL (8.9-20.6); Calc. Creatinine Clearance 145 mL/min (70-130); Calcium 8.6 mg/dL (7.8-10.44); Carbon Dioxide 18 mmol/L (22-29); Chloride 103 mmol/L (98-107); Estimated GFR 125; Glucose 78 mg/dL (70-105); Potassium 3.9 mmol/L (3.5-5.1); Sodium 134 mmol/L (136-145)
[2024-07-02] MEDS: Magnesium 2 GM/50 ML(in water) 2 GM in Premix 1 BAG IVPB SCH (08:37)
[2024-07-02] MEDS: Lactulose 20 GM (30 mL) UDCUP PO SCH (09:30)
[2024-07-02] MEDS: Polyethylene Glycol 3350 17 GM Packet PO SCH (09:30)
[2024-07-02] MEDS: Senokot S 8.6-50 MG TAB PO SCH (21:26)
[2024-07-02] MEDS: Cyanocobalamin (Vitamin B-12) 1,000 MCG TAB PO SCH (21:27)
[2024-07-02] MEDS: Multivit, Therapeutic 1 TAB PO SCH (21:27)
[2024-07-02] MEDS: Thiamine 100 MG TAB PO SCH (21:27)
[2024-07-02] MEDS: Folic Acid 1 MG TAB PO SCH (21:28)
[2024-07-03] MEDS: Morphine 2 MG/ML VIAL SLOW IVP SCH (03:21)
[2024-07-03 03:23] VITALS: BMI 23.1
[2024-07-03 03:50] LABS: #Basophils 0.04 10x3/uL (0.0-0.2); %Basophils 0.3 % (0.0-1.0); %Eosinophils 2.4 % (0.0-10.0); %Lymphocytes 7.6 % (21.0-51.0); Hematocrit 27.1 % (42.0-52.0); Hemoglobin 9.3 g/dL (14.0-18.0); Mean Corpuscular HGB CONC 34.3 g/dL (32.0-36.0); Mean Corpuscular Hemoglobin 28.7 pg (27.0-31.0); Mean Corpuscular Volume 83.6 fL (78.0-98.0); Mean Platelet Volume 9.8 fL (7.4-10.4); Platelet Count 524 10x3/uL (130-400); RBC Distribution Width 13.5 % (11.5-14.5); Red Blood Cell (RBC) Count 3.24 mill/uL (4.70-6.10)
[2024-07-03 04:17] LABS: ALT (SGPT) 41 U/L (8-55); AST (SGOT) 44 U/L (5-34); Albumin 2.6 g/dL (3.5-5.0); Alkaline Phosphatase 149 U/L (40-110); Anion Gap 15 mmol/L (10-20); BUN (Urea Nitrogen) 7 mg/dL (8.9-20.6); Bilirubin, Total 1.1 mg/dL (0.2-1.2); Calc. Creatinine Clearance 111 mL/min (70-130); Calcium 8.6 mg/dL (7.8-10.44); Carbon Dioxide 21 mmol/L (22-29); Chloride 101 mmol/L (98-107); Estimated GFR 117; Globulin 4.5 g/dL (2.4-3.5); Glucose 104 mg/dL (70-105); Potassium 3.8 mmol/L (3.5-5.1); Protein, Total 7.1 g/dL (6.0-8.3); Sodium 133 mmol/L (136-145)
[2024-07-03] MEDS: pyridOXINE 50 MG (B6) TAB PO SCH (09:25)
[2024-07-03] MEDS: Ketorolac Tromethamine 30 MG (1 mL) VIAL IVP SCH (13:04)
[2024-07-03] MEDS: Docusate 100 MG CAP PO SCH (21:36)
[2024-07-03] MEDS: Cholecalciferol 1,000 UNITS (25 MCG) TAB PO SCH (21:36)
[2024-07-04 05:08] LABS: #Basophils 0.05 10x3/uL (0.0-0.2); %Basophils 0.5 % (0.0-1.0); %Eosinophils 3.9 % (0.0-10.0); %Lymphocytes 8.5 % (21.0-51.0); %Monocytes 7.4 % (0.0-10.0); Hematocrit 29.3 % (42.0-52.0); Mean Corpuscular HGB CONC 34.1 g/dL (32.0-36.0); Mean Corpuscular Hemoglobin 28.3 pg (27.0-31.0); Mean Platelet Volume 9.4 fL (7.4-10.4); Platelet Count 566 10x3/uL (130-400); RBC Distribution Width 13.6 % (11.5-14.5); Red Blood Cell (RBC) Count 3.53 mill/uL (4.70-6.10)
[2024-07-04 05:25] LABS: Anion Gap 15 mmol/L (10-20); BUN (Urea Nitrogen) 7 mg/dL (8.9-20.6); Calc. Creatinine Clearance 124 mL/min (70-130); Calcium 9.3 mg/dL (7.8-10.44); Carbon Dioxide 23 mmol/L (22-29); Chloride 99 mmol/L (98-107); Estimated GFR 120; Glucose 102 mg/dL (70-105); Potassium 3.9 mmol/L (3.5-5.1); Sodium 133 mmol/L (136-145)
[2024-07-04] MEDS ORDERED: Lidocaine 1% PF 5 ML VIAL ONE (09:21)
[2024-07-04] MEDS ORDERED: Sodium Bicarbonate 2.5 MEQ/5 ML SDV ONE (09:21)
[2024-07-04] MEDS: Piperacillin/Tazobactam 3.375 GM in Sodium Chloride 0.9% 100 ML IVPB SCH (10:44)
[2024-07-04] MEDS: Sodium Chloride 0.9% 100 ML ONE (10:50)
[2024-07-04] MEDS: HYDROcodone/Acetaminophen 5/325 mg Tablet PO SCH (20:22)
[2024-07-05 08:12] LABS: #Basophils 0.05 10x3/uL (0.0-0.2); %Basophils 0.5 % (0.0-1.0); %Eosinophils 5.4 % (0.0-10.0); %Lymphocytes 11.5 % (21.0-51.0); %Monocytes 8.5 % (0.0-10.0); %Neutrophils 72.4 % (42.0-75.0); Hematocrit 29.9 % (42.0-52.0); Hemoglobin 10.1 g/dL (14.0-18.0); Mean Corpuscular HGB CONC 33.8 g/dL (32.0-36.0); Mean Corpuscular Hemoglobin 28.5 pg (27.0-31.0); Mean Corpuscular Volume 84.5 fL (78.0-98.0); Mean Platelet Volume 8.7 fL (7.4-10.4); Platelet Count 494 10x3/uL (130-400); RBC Distribution Width 13.9 % (11.5-14.5); Red Blood Cell (RBC) Count 3.54 mill/uL (4.70-6.10)
[2024-07-05 08:23] LABS: Anion Gap 15 mmol/L (10-20); BUN (Urea Nitrogen) 8 mg/dL (8.9-20.6); Calc. Creatinine Clearance 133 mL/min (70-130); Calcium 9.1 mg/dL (7.8-10.44); Carbon Dioxide 22 mmol/L (22-29); Chloride 101 mmol/L (98-107); Estimated GFR 123; Glucose 88 mg/dL (70-105); Potassium 3.9 mmol/L (3.5-5.1); Sodium 134 mmol/L (136-145)
[2024-07-05] MEDS: Fluconazole 100 MG TAB PO SCH (09:52)
[2024-07-05 09:58] VITALS: BMI 23.1
[2024-07-05] MEDS ORDERED: Fluconazole 100 MG TAB PO SCH (12:30)
[2024-07-05] MEDS: Piperacillin/Tazobactam 3.375 GM in Sodium Chloride 0.9% 100 ML IVPB SCH (14:47)
[2024-07-06 06:27] LABS: #Basophils 0.06 10x3/uL (0.0-0.2); %Basophils 0.6 % (0.0-1.0); %Eosinophils 5.4 % (0.0-10.0); %Monocytes 7.8 % (0.0-10.0); Hematocrit 29.1 % (42.0-52.0); Hemoglobin 9.6 g/dL (14.0-18.0); Mean Corpuscular Hemoglobin 28.1 pg (27.0-31.0); Mean Corpuscular Volume 85.1 fL (78.0-98.0); Mean Platelet Volume 9.2 fL (7.4-10.4); Platelet Count 522 10x3/uL (130-400); RBC Distribution Width 14.2 % (11.5-14.5); Red Blood Cell (RBC) Count 3.42 mill/uL (4.70-6.10)
[2024-07-06 06:48] LABS: ALT (SGPT) 239 U/L (8-55); AST (SGOT) 142 U/L (5-34); Albumin 2.8 g/dL (3.5-5.0); Alkaline Phosphatase 142 U/L (40-110); Anion Gap 15 mmol/L (10-20); BUN (Urea Nitrogen) 7 mg/dL (8.9-20.6); Bilirubin, Total 0.9 mg/dL (0.2-1.2); Calc. Creatinine Clearance 129 mL/min (70-130); Calcium 9.2 mg/dL (7.8-10.44); Carbon Dioxide 22 mmol/L (22-29); Chloride 100 mmol/L (98-107); Estimated GFR 122; Globulin 4.6 g/dL (2.4-3.5); Glucose 103 mg/dL (70-105); Protein, Total 7.4 g/dL (6.0-8.3); Sodium 133 mmol/L (136-145)
[2024-07-06] MEDS: Fluconazole 100 MG TAB PO SCH (12:35)
[2024-07-06] MEDS: Bisacodyl 5 MG TAB PO SCH (12:35)
[2024-07-06] MEDS: Senokot S 8.6-50 MG TAB PO SCH (21:37)
[2024-07-07] MEDS: Morphine 4 MG/ML VIAL SLOW IVP SCH (03:12)
[2024-07-07 05:37] LABS: #Basophils 0.05 10x3/uL (0.0-0.2); %Basophils 0.5 % (0.0-1.0); %Lymphocytes 11.9 % (21.0-51.0); %Monocytes 8.6 % (0.0-10.0); %Neutrophils 70.8 % (42.0-75.0); Hematocrit 30.5 % (42.0-52.0); Mean Corpuscular HGB CONC 32.8 g/dL (32.0-36.0); Mean Corpuscular Volume 85.4 fL (78.0-98.0); Mean Platelet Volume 9.2 fL (7.4-10.4); Platelet Count 585 10x3/uL (130-400); RBC Distribution Width 14.5 % (11.5-14.5); Red Blood Cell (RBC) Count 3.57 mill/uL (4.70-6.10)
[2024-07-07 06:10] LABS: ALT (SGPT) 207 U/L (8-55); AST (SGOT) 106 U/L (5-34); Albumin 2.9 g/dL (3.5-5.0); Anion Gap 13 mmol/L (10-20); BUN (Urea Nitrogen) 8 mg/dL (8.9-20.6); Bilirubin, Total 0.8 mg/dL (0.2-1.2); Calc. Creatinine Clearance 118 mL/min (70-130); Calcium 9.5 mg/dL (7.8-10.44); Carbon Dioxide 26 mmol/L (22-29); Chloride 99 mmol/L (98-107); Estimated GFR 119; Globulin 4.8 g/dL (2.4-3.5); Glucose 110 mg/dL (70-105); Protein, Total 7.7 g/dL (6.0-8.3); Sodium 134 mmol/L (136-145)
[2024-07-07 06:37] LABS: Alkaline Phosphatase 128 U/L (40-110)
[2024-07-07] MEDS: Senokot S 8.6-50 MG TAB PO SCH (09:02)
[2024-07-07] MEDS: Milk Of Magnesia 30 ML UDCUP PO SCH (09:03)
[2024-07-07] MEDS: Polyethylene Glycol 3350 17 GM Packet PO SCH (09:03)
[2024-07-07] MEDS: Bisacodyl 10 MG SUPP PR SCH (11:22)
[2024-07-07] MEDS: Milk Of Magnesia 30 ML UDCUP PO PRN (14:52)
[2024-07-07] MEDS: Fleet Saline Enema 133 ML BOT PR SCH (17:39)
[2024-07-07] MEDS ORDERED: Bisacodyl 10 MG SUPP PR SCH (21:00)
[2024-07-08 05:50] LABS: #Basophils 0.05 10x3/uL (0.0-0.2); %Basophils 0.5 % (0.0-1.0); %Eosinophils 7.3 % (0.0-10.0); %Lymphocytes 12.2 % (21.0-51.0); %Monocytes 8.3 % (0.0-10.0); %Neutrophils 70.3 % (42.0-75.0); Hematocrit 32.4 % (42.0-52.0); Hemoglobin 10.7 g/dL (14.0-18.0); Mean Corpuscular Hemoglobin 28.3 pg (27.0-31.0); Mean Corpuscular Volume 85.7 fL (78.0-98.0); Mean Platelet Volume 9.3 fL (7.4-10.4); Platelet Count 654 10x3/uL (130-400); RBC Distribution Width 14.5 % (11.5-14.5); Red Blood Cell (RBC) Count 3.78 mill/uL (4.70-6.10)
[2024-07-08 06:03] LABS: ALT (SGPT) 176 U/L (8-55); AST (SGOT) 79 U/L (5-34); Alkaline Phosphatase 122 U/L (40-110); Anion Gap 15 mmol/L (10-20); BUN (Urea Nitrogen) 11 mg/dL (8.9-20.6); Bilirubin, Total 0.9 mg/dL (0.2-1.2); Calc. Creatinine Clearance 118 mL/min (70-130); Calcium 9.6 mg/dL (7.8-10.44); Carbon Dioxide 26 mmol/L (22-29); Chloride 98 mmol/L (98-107); Estimated GFR 119; Globulin 4.9 g/dL (2.4-3.5); Glucose 105 mg/dL (70-105); Potassium 4.2 mmol/L (3.5-5.1); Protein, Total 7.9 g/dL (6.0-8.3); Sodium 135 mmol/L (136-145)
[2024-07-08 12:32] VITALS: BP 133/89; TEMP 98.6
== END 2024-07-08 13:26 | disposition home or self-care (01) | DRG 853 ==
LOC: ERS 00:26 → SDC 05:40 → ERS 05:40 → 2NO 17:25 → CCU 06-16 05:25 → SURG A 06-22 19:21 → IMCU/EMU 06-23 18:03 → SURG B 06-25 14:32
PROVIDERS: ADMIT Internal Medicine; ATTEND Internal Medicine
PROC: 0T9B70Z Drainage of Bladder with Drainage Device, Via Natural or Artificial Opening (ICD-10-PCS; principal; 2024-06-15)
PROC: 0DB80ZZ Excision of Small Intestine, Open Approach (ICD-10-PCS; 2024-06-15)
PROC: 0DNW0ZZ Release Peritoneum, Open Approach (ICD-10-PCS; 2024-06-15)
PROC: 3E033XZ Introduction of Vasopressor into Peripheral Vein, Percutaneous Approach (ICD-10-PCS; 2024-06-15)
PROC: 3E03329 Introduction of Other Anti-infective into Peripheral Vein, Percutaneous Approach (ICD-10-PCS; 2024-06-15)
PROC: 4A133R1 Monitoring of Arterial Saturation, Peripheral, Percutaneous Approach (ICD-10-PCS; 2024-06-16)
PROC: 30233J1 Transfusion of Nonautologous Serum Albumin into Peripheral Vein, Percutaneous Approach (ICD-10-PCS; 2024-06-16)
PROC: 5A09357 Assistance with Respiratory Ventilation, Less than 24 Consecutive Hours, Continuous Positive Airway Pressure (ICD-10-PCS; 2024-06-16)
PROC: 5A1955Z Respiratory Ventilation, Greater than 96 Consecutive Hours (ICD-10-PCS; 2024-06-17)
PROC: 02HV33Z Insertion of Infusion Device into Superior Vena Cava, Percutaneous Approach (ICD-10-PCS; 2024-07-04)
PROC: B5181ZA Fluoroscopy of Superior Vena Cava using Low Osmolar Contrast, Guidance (ICD-10-PCS; 2024-07-04)
DX: A41.9 Sepsis, unspecified organism (principal); J69.0 Pneumonitis due to inhalation of food and vomit; K63.1 Perforation of intestine (nontraumatic); J80 Acute respiratory distress syndrome; K65.9 Peritonitis, unspecified; R65.21 Severe sepsis with septic shock; I42.9 Cardiomyopathy, unspecified; N17.9 Acute kidney failure, unspecified; E87.1 Hypo-osmolality and hyponatremia; I50.22 Chronic systolic (congestive) heart failure; F17.210 Nicotine dependence, cigarettes, uncomplicated; F10.129 Alcohol abuse with intoxication, unspecified; E87.5 Hyperkalemia; D64.9 Anemia, unspecified; F41.9 Anxiety disorder, unspecified; E83.42 Hypomagnesemia; E87.6 Hypokalemia; Z79.899 Other long term (current) drug therapy
CPT/HCPCS: 0241U; 36415; 36573; 36600; 49406; 51702; 70450; 71045; 71275; 72125; 72193; 74022; 74160; 74177; 80048; 80053; 80306; 80307; 81001; 82248; 82805; 83605; 83690; 83735; 84100; 84145; 84484; 85025; 85049; 85060; 85300; 85362; 85384; 85610; 85730; 86141; 86850; 86900; 86901; 87040; 87070; 87077; 87086; 87149; 87186; 87205; 87389; 88307; 93005; 93010; 93306; 94002; 94003; 94640; 94660; 96361; 96365; 96367; 96375; 96376; 97139; A4314; C1729; C1751; G0390; J0360; J0613; J0696; J0878; J1100; J1170; J1200; J1650; J1885; J2020; J2060; J2248; J2250; J2272; J2405; J2543; J2550; J2704; J2800; J2919; J3010; J3411; J3475; J3480; J3490; J7030; J7070; J7120; J7620; P9047; Q0162; Q9963; Q9967

== ENCOUNTER 2025-05-15 20:55 | Emergency (ER) | payer OTHER ==
[2025-05-15] MEDS ORDERED: diphenhydrAMINE 50 MG/ML VIAL ONE (21:26)
[2025-05-15 22:43] LABS: #Basophils 0.06 10x3/uL (0.0-0.2); #Eosinophils 0.26 10x3/uL (0.0-0.7); #Monocytes 0.32 10x3/uL (0.11-0.59); #Neutrophils 2.82 10x3/uL (1.40-6.50); %Basophils 1.1 % (0.0-1.0); %Eosinophils 4.9 % (0.0-10.0); %Lymphocytes 33.5 % (21.0-51.0); %Monocytes 6.1 % (0.0-10.0); %Neutrophils 53.5 % (42.0-75.0); Hematocrit 38.3 % (42.0-52.0); Hemoglobin 13.0 g/dL (14.0-18.0); Mean Corpuscular Hemoglobin 30.2 pg (27.0-31.0); Mean Corpuscular Volume 89.1 fL (78.0-98.0); Platelet Count 272 10x3/uL (130-400); Red Blood Cell (RBC) Count 4.30 mill/uL (4.70-6.10); White Blood Cell (WBC) Count 5.28 10x3/uL (4.8-10.8)
[2025-05-15 23:00] LABS: ALT (SGPT) 17 U/L (Less than 45); AST (SGOT) 36 U/L (11-34); Acetaminophen Less than 10 mcg/mL (Less than 10); Albumin 4.2 g/dL (3.1-4.5); Alkaline Phosphatase 57 U/L (40-110); Anion Gap 16 mmol/L (10-20); BUN (Urea Nitrogen) 11 mg/dL (8.9-20.6); Bilirubin, Total 0.5 mg/dL (0.3-1.2); Calc. Creatinine Clearance 0 mL/min (70-130); Calcium 9.0 mg/dL (7.8-10.44); Carbon Dioxide 21 mmol/L (22-29); Chloride 111 mmol/L (98-107); Globulin 2.8 g/dL (2.4-3.5); Glucose 99 mg/dL (70-105); Potassium 3.6 mmol/L (3.5-5.1); Salicylate Less than 8.0 mg/dL (Less than 8.0); Sodium 144 mmol/L (136-145)
[2025-05-16 08:23] LABS: Acetaminophen Less than 10 mcg/mL (Less than 10); Salicylate Less than 8.0 mg/dL (Less than 8.0)
[2025-05-16 16:27] LABS: Bacteria/HPF None Seen HPF (None Seen); CAUTI Indications for Culture Dysuria,urgency,freq; Glucose, Urine (Dipstick) Normal (Negative); Leukocyte Negative Leu/uL (Negative); Protein, Urine (Dipstick) Negative (Neg-Trace); RBC/HPF 0-3 HPF (0-3); Specific Gravity, Urine 1.018 (1.002-1.036); WBC/HPF 0-3 HPF (0-3)
[2025-05-16 16:32] LABS: Cocaine Metabolite Screen Negative (Negative); THC/Cannabinoid Screen PRELIM POSITIVE (Negative); Tricyclic Screen Negative (Negative)
[2025-05-16 16:44] LABS: Urine Culture Reflex No No
== END 2025-05-16 19:44 ==
LOC: ERS 20:55
DX: R45.851 Suicidal ideations (principal); F17.210 Nicotine dependence, cigarettes, uncomplicated
CPT/HCPCS: 36415; 71045; 80053; 80306; 80307; 81001; 84484; 85025; 87426; 93005; 96372; J1200; J1630; J2060